=== PATIENT | male | born 1960 | race Caucasian/White ===

== ENCOUNTER → 2021-06-08 10:49 | Outpatient (BNVA) | payer OTHER, SELFPAY | PROVIDERS: Visit Provider Nurse Practitioner Family | DX: Z20.822 Contact with and (suspected) exposure to COVID-19 (principal); J06.9 Acute upper respiratory infection, unspecified | CPT/HCPCS: 87635 ==

== ENCOUNTER 2021-06-10 11:30 | Outpatient (CLI) | payer OTHER, SELFPAY ==
[2021-06-10 12:00] VITALS: BP 169/79; PULSE 81; RESP 16; TEMP 36.8; O2SAT 98; BMI 29.8
[2021-06-10 12:25] VITALS: BP 134/72; PULSE 66; RESP 16; O2SAT 94
[2021-06-10 13:22] VITALS: BP 145/75; PULSE 68; RESP 15; TEMP 36.6; O2SAT 97
--- NOTE | 2021-06-19 14:20 | DCPLANNER ---
natural sciences manager had message that patient received the monoclonal antibody infusion. natural sciences manager called phone number [phone], to check on patient. natural sciences manager was unable to speak with patient at this time, and unable to leave a voicemail for patient.
== END 2021-06-10 11:31 | disposition home or self-care (01) ==
LOC: OPS 11:33
PROVIDERS: Visit Provider Nurse Practitioner Family
DX: U07.1 COVID-19 (principal)
CPT/HCPCS: 96365